=== PATIENT | female | born 1995 | race Caucasian/White ===

== ENCOUNTER → 2017-01-06 | Outpatient (CLI) | payer OTHER ==
[~2017-01-06] MED LIST: ACET-749 PO; AZITTAB PO; FLUT0.15 NAE; MEDR150I INJ; PRED20TA PO; PRENTAB26 PO
== END | disposition home or self-care (01) ==
LOC: C.LABSPEC 11:20
PROVIDERS: ATTEND Nurse Practitioner Adult Health
DX: J02.9 Acute pharyngitis, unspecified (principal)

== ENCOUNTER 2017-01-08 21:08 | Emergency (ER) | payer OTHER ==
[~2017-01-08] VITALS: Ht 162.6 cm; Wt 55.7 kg
[~2017-01-08 21:08] MED LIST changes: -ACET-749 PO; -AZITTAB PO; -FLUT0.15 NAE; -MEDR150I INJ; -PRED20TA PO
[2017-01-08 21:10] VITALS: TEMP 36.9; Ht 162.6 cm; Wt 55.7 kg
[2017-01-08] MEDS ORDERED: FLUT0.15 NAE (21:37)
[2017-01-08] MEDS ORDERED: MEDR150I INJ (21:37)
[2017-01-08 21:54] LABS: HEMATOCRIT 40.7 % (37-47); MEAN CELL VOLUME 86.4 fL (80-100); MEAN CORPUSCULAR HEMOGLOBIN 29.5 pg (25-34); MEAN CORPUSCULAR HGB CONC 34.2 g/dl (32-36); MEAN PLATELET VOLUME 9.8 fL (7.4-10.4); PLATELET COUNT 324 K/uL (130-400); RED BLOOD COUNT 4.71 M/uL (4.2-5.4); WHITE BLOOD COUNT 12.83 K/uL (4.8-10.8)
[2017-01-08 22:07] LABS: BUN/CREATININE RATIO 16.3 (10-20); CALCIUM 9.5 mg/dl (8.5-10.1); CREATININE 0.7 mg/dl (0.60-1.20); POTASSIUM 3.5 mmol/L (3.5-5.1)
[2017-01-08 22:18] LABS: BASO % 0.9 %; BASO ABS # 0.11 K/uL (0-0.2); COMPLETE YES; EOS % 1.4 %; IG% 0.3 %; LYMPH % 36.7 %; LYMPH ABS # 4.71 K/uL (1.2-3.4); MONO % 5.4 %; NEUT % 55.3 %
[2017-01-08] MEDS ORDERED: METHYLPREDNISOLONE 125 MG VIAL IV STA (23:01)
[2017-01-08] MEDS ORDERED: AZITHROMYCIN 250 MG TAB PO STA (23:01)
[2017-01-08 23:06] VITALS: BP 140/81; PULSE 83; O2SAT 98
[2017-01-08] MEDS ORDERED: AZITTAB PO (23:13)
[2017-01-08] MEDS ORDERED: PRED20TA PO (23:13)
--- NOTE | 2017-01-08 23:13 | EMERGENCY ROOM VISIT NOTE ---
History Report prepared by Magui: Mateo Bartlett Under the Supervision of: Dr. Rosendo Ruiz D.O. First contact with patient: 21:27 Chief Complaint: THROAT PAIN/INJURY Stated Complaint: SWOLLEN, PAINFUL TONSILS, MAJOR HEADACHES History of Present Illness The patient is a 21 year old female who presents to the Emergency Room with complaints of worsening throat pain starting 5 days ago. She rates her pain as a 7/10 in severity. The patient states that she visited the doctor two days ago where she had a Strep test done. She reports that the test was negative and she was sent home with a diagnosis of post nasal drip. The patient states that her tonsils are swollen and her left side is worse than the right. She also states that she has been experiencing headaches recently. The patient admits that she currently smokes everyday. She states that she cannot take Penicillin due to an allergy. Source of History: patient Onset: five days ago Position: throat Symptom Intensity: 7/10 Timing: worsening Modifying Factors (Worsening): other (smoking) Associated Symptoms: + headache Review of Systems See HPI for pertinent positives & negatives. A total of 10 systems reviewed and were otherwise negative. Past Medical & Surgical Medical Problems: (1) Bronchitis (2) Normal labor and delivery Family History Cancer Diabetes mellitus Hypertension Kidney disease Kidney stones Seizures Social History Smoking Status: Current Every Day Smoker Smokeless Tobacco Use: Yes (1-10/week) Alcohol Use: occasionally (twice/week) Drug Use: none Marital Status: in relationship Housing Status: lives with family Occupation Status: student Current/Historical Medications Scheduled Fluticasone Propionate (Nasal) (Flonase Allergy Relief), 1 SPRAY HEMA DAILY Medroxyprogesterone Acetate (C (Depo-Provera Contraceptiv), 1 DOSE INJ Q3MO Allergies Coded Allergies: Penicillins (Verified Allergy, Mild, RASH, 01/08/17) Physical Exam Vital Signs Date Time Temp Pulse Resp B/P (MAP) Pulse Ox O2 Delivery O2 Flow Rate FiO2 01/08/17 21:30 97 18 135/92 98 Room Air 01/08/17 21:18 139/85 01/08/17 21:10 36.9 102 20 125/83 97 Room Air Physical Exam CONSTITUTIONAL/VITAL SIGNS: Reviewed / noted above. GENERAL: Non-toxic in appearance. INTEGUMENTARY: Warm, dry, and [place]. HEAD: Normocephalic. EYES: without scleral icterus or trauma. ENT/OROPHARYNX: clear and moist. Diffuse posterior pharyngeal erythema. LYMPHADENOPATHY/NECK: Is supple without lymphadenopathy or meningismus. RESPIRATORY: Lungs clear and equal. CARDIOVASCULAR: Regular rate and rhythm. GI/ABDOMEN: Soft and nontender. No organomegaly or pulsatile mass. No rebound or guarding. Normal bowel sounds. EXTREMITIES: Warm and well perfused. BACK: No CVA tenderness. NEUROLOGICAL: Intact without focal deficits. PSYCHIATRIC: normal affect. MUSCULOSKELETAL: Normally developed with good muscle tone. Medical Decision & Procedures Laboratory Results 01/08/17 21:40 Red Blood Count 4.71, Mean Corpuscular Volume 86.4, Mean Corpuscular Hemoglobin 29.5, Mean Corpuscular Hemoglobin Concent 34.2, Mean Platelet Volume 9.8, Neutrophils (%) (Auto) 55.3, Lymphocytes (%) (Auto) 36.7, Monocytes (%) (Auto) 5.4, Eosinophils (%) (Auto) 1.4, Basophils (%) (Auto) 0.9, Neutrophils # (Auto) 7.10, Lymphocytes # (Auto) 4.71, Monocytes # (Auto) 0.69, Eosinophils # (Auto) 0.18, Basophils # (Auto) 0.11 01/08/17 21:40 Test 01/08/17 21:40 White Blood Count 12.83 K/uL (4.8-10.8) Red Blood Count 4.71 M/uL (4.2-5.4) Hemoglobin 13.9 g/dL (12.0-16.0) Hematocrit 40.7 % (37-47) Mean Corpuscular Volume 86.4 fL (80-100) Mean Corpuscular Hemoglobin 29.5 pg (25-34) Mean Corpuscular Hemoglobin Concent 34.2 g/dl (32-36) Platelet Count 324 K/uL (130-400) Mean Platelet Volume 9.8 fL (7.4-10.4) Neutrophils (%) (Auto) 55.3 % Lymphocytes (%) (Auto) 36.7 % Monocytes (%) (Auto) 5.4 % Eosinophils (%) (Auto) 1.4 % Basophils (%) (Auto) 0.9 % Neutrophils # (Auto) 7.10 K/uL (1.4-6.5) Lymphocytes # (Auto) 4.71 K/uL (1.2-3.4) Monocytes # (Auto) 0.69 K/uL (0.11-0.59) Eosinophils # (Auto) 0.18 K/uL (0-0.5) Basophils # (Auto) 0.11 K/uL (0-0.2) RDW Standard Deviation 42.5 fL (36.4-46.3) RDW Coefficient of Variation 13.4 % (11.5-14.5) Immature Granulocyte % (Auto) 0.3 % Immature Granulocyte # (Auto) 0.04 K/uL (0.00-0.02) Anion Gap 10.0 mmol/L (3-11) Est Creatinine Clear Calc Drug Dose 109.8 ml/min Estimated GFR () 143.5 Estimated GFR (Non- 123.9 BUN/Creatinine Ratio 16.3 (10-20) Calcium Level 9.5 mg/dl (8.5-10.1) Monoscreen NEG (NEG) Laboratory results as stated above per my review. ED Course 2040: Previous medical records were reviewed. The patient was evaluated in room C07. A complete history and physical examination was performed. 2308: On reevaluation, the patient is resting comfortably. I discussed the results and findings with the patient. She verbalized agreement of the treatment plan. She was discharged home. Medical Decision The differential diagnosis includes but is not limited to: Strep pharyngitis, mononucleosis, viral syndrome. This is a 21-year-old female who presents to the ED with a chief complaint of a sore throat. The patient states that she has had the sore throat since Wednesday. She had a strep test a couple of days ago that was negative but a culture revealed group B strep. The patient presents today with worsening symptoms with posterior oropharyngeal hyperemia/erythema. Her CBC was unremarkable. PRP is normal. Noble was negative. The patient was started on Zithromax. She was given IV Solu-Medrol and discharged on prednisone. The patient is felt to be stable for discharge and outpatient follow-up. Impression Primary Impression: Acute pharyngitis Scribe Attestation The scribe's documentation has been prepared under my direction and personally reviewed by me in its entirety. I confirm that the note above accurately reflects all work, treatment, procedures, and medical decision making performed by me. Departure Information Dispostion Home / Self-Care Prescriptions Prednisone (Prednisone) 20 Mg Tab 2 TAB PO DAILY for 4 Days, #8 TAB Prov: Rosendo Ruiz D.O. 01/08/17 Azithromycin (ZITHROMAX Z-HANNA) 250 Mg Tab 0 PO UD, #1 PKT 2 TABS DAY 1, THEN 1 TAB DAILY FOR 4 DAYS Prov: Rosendo Ruiz D.O. 01/08/17 Referrals No Doctor, Assigned (PCP) Patient Instructions My [facility] Additional Instructions Zithromax and prednisone as prescribed. Follow-up with your doctor for further care and evaluation in 1-2 days. Return to the emergency department for worsening or new symptoms or any concerns. You have been examined and treated today on an emergency basis only. This is not a substitute for, or an effort to provide, complete comprehensive medical care. It is impossible to recognize and treat all injuries or illnesses in a single emergency department visit. It is therefore important that you follow up closely with your doctor. Call as soon as possible for an appointment.
== END 2017-01-08 23:19 | disposition home or self-care (01) ==
LOC: C.EDB 21:09 → C.EDC 23:19
DX: J02.9 Acute pharyngitis, unspecified (principal); F17.210 Nicotine dependence, cigarettes, uncomplicated; Z79.3 Long term (current) use of hormonal contraceptives

== ENCOUNTER 2017-03-15 21:47 | Emergency (ER) | payer OTHER ==
[~2017-03-15] VITALS: Ht 162.6 cm; Wt 58.3 kg
[~2017-03-15 21:47] MED LIST changes: +FLUT0.15 NAE; +MEDR150I INJ; -PRENTAB26 PO
[2017-03-15 21:48] VITALS: TEMP 36.7; Ht 162.6 cm; Wt 58.3 kg
[2017-03-15 22:22] LABS: BASO % 1.2 %; COMPLETE YES; EOS % 0.8 %; HEMATOCRIT 42.7 % (37-47); IG% 0.4 %; LYMPH % 47.9 %; LYMPH ABS # 3.97 K/uL (1.2-3.4); MEAN CELL VOLUME 85.9 fL (80-100); MEAN CORPUSCULAR HEMOGLOBIN 28.2 pg (25-34); MEAN CORPUSCULAR HGB CONC 32.8 g/dl (32-36); MEAN PLATELET VOLUME 9.7 fL (7.4-10.4); MONO % 6.8 %; NEUT % 42.9 %; PLATELET COUNT 345 K/uL (130-400); RED BLOOD COUNT 4.97 M/uL (4.2-5.4); WHITE BLOOD COUNT 8.29 K/uL (4.8-10.8)
[2017-03-15 22:38] LABS: BUN/CREATININE RATIO 14.4 (10-20); CREATININE 0.77 mg/dl (0.60-1.20); POTASSIUM 3.5 mmol/L (3.5-5.1)
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
[2017-03-15] MEDS ORDERED: KETOROLAC TROMETHAMINE 30 MG/ML VIAL IV STA (23:22)
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
[2017-03-16] MEDS ORDERED: TYLENOL #3 HOME PACK PO ONE (00:15)
[2017-03-16] MEDS ORDERED: ACET-749 PO (00:34)
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
[2017-03-16 01:10] VITALS: BP 138/75; PULSE 116; O2SAT 99
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
== END 2017-03-16 00:55 | disposition home or self-care (01) ==
LOC: EDBD 21:47 → C.EDC 21:48
DX: S52.602A Unspecified fracture of lower end of left ulna, initial encounter for closed fracture (principal); V48.0XXA Car driver injured in noncollision transport accident in nontraffic accident, initial encounter; F17.200 Nicotine dependence, unspecified, uncomplicated; Z80.9 Family history of malignant neoplasm, unspecified; Z83.3 Family history of diabetes mellitus; Z82.49 Family history of ischemic heart disease and other diseases of the circulatory system; Z84.1 Family history of disorders of kidney and ureter; Z82.0 Family history of epilepsy and other diseases of the nervous system

== ENCOUNTER 2017-03-16 21:11 | Emergency (ER) | payer OTHER ==
[~2017-03-16] VITALS: Ht 162.6 cm; Wt 57.2 kg
[~2017-03-16 21:11] MED LIST changes: +ACET-749 PO; -FLUT0.15 NAE
[2017-03-16 21:17] VITALS: TEMP 36.7; Ht 162.6 cm; Wt 57.2 kg
[2017-03-16] MEDS ORDERED: OPTIRAY 320 IV PRN (22:00)
[2017-03-16 22:08] LABS: ISTAT CREATININE 0.7 mg/dl (0.6-1.3); ISTAT HEMOGLOBIN 12.6 g/dl (12.0-16.0); ISTAT IONIZED CALCIUM 1.08 mmol/l (1.12-1.32)
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
[2017-03-17] MEDS ORDERED: GADOXETATE DISODIUM (NON-WT BASED PROCEDURE) IV PRN (00:45)
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
[2017-03-17 01:36] LABS: BASO % 0.7 %; BASO ABS # 0.07 K/uL (0-0.2); COMPLETE YES; EOS % 0.7 %; HEMATOCRIT 38.4 % (37-47); IG% 0.3 %; LYMPH % 24.8 %; LYMPH ABS # 2.34 K/uL (1.2-3.4); MEAN CELL VOLUME 88.1 fL (80-100); MEAN CORPUSCULAR HEMOGLOBIN 28.4 pg (25-34); MEAN CORPUSCULAR HGB CONC 32.3 g/dl (32-36); MEAN PLATELET VOLUME 9.9 fL (7.4-10.4); MONO % 5.9 %; NEUT % 67.6 %; PLATELET COUNT 228 K/uL (130-400); RED BLOOD COUNT 4.36 M/uL (4.2-5.4); WHITE BLOOD COUNT 9.42 K/uL (4.8-10.8)
[2017-03-17 01:55] LABS: PARTIAL THROMBOPLASTIN RATIO 0.9; PROTHROMBIN TIME (PATIENT) 10.8 SECONDS (9.0-12.0)
[2017-03-17 02:14] LABS: ALB/GLOB RATIO 1.1 (0.9-2); ALKALINE PHOSPHATASE 53 U/L (45-117); ALT/SGPT 29 U/L (12-78); BLOOD UREA NITROGEN 14 mg/dl (7-18); BUN/CREATININE RATIO 18.3 (10-20); CALCIUM 8.7 mg/dl (8.5-10.1); CARBON DIOXIDE 23 mmol/L (21-32); CHLORIDE 111 mmol/L (98-107); CREATININE 0.75 mg/dl (0.60-1.20); GLUCOSE 85 mg/dl (70-99); SODIUM 140 mmol/L (136-145)
[2017-03-17 02:40] LABS: POTASSIUM 3.9 mmol/L (3.5-5.1)
[2017-03-17] MEDS ORDERED: MoRPHine SULFATE 2 MG/ML CARP IV STA (02:55)
[2017-03-17] MEDS ORDERED: ONDANSETRON INJ 2 MG/ML 2 ML VIAL IV STA (02:55)
[2017-03-17 03:30] VITALS: BP 119/80; PULSE 81; O2SAT 99
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
== END 2017-03-17 03:43 | disposition short-term general hospital (02) ==
LOC: C.EDB 21:12 → C.EDA 03-17 03:43
DX: S52.514A Nondisplaced fracture of right radial styloid process, initial encounter for closed fracture (principal); S36.029A Unspecified contusion of spleen, initial encounter; S52.202A Unspecified fracture of shaft of left ulna, initial encounter for closed fracture; V89.9XXA Person injured in unspecified vehicle accident, initial encounter; R07.81 Pleurodynia; F17.210 Nicotine dependence, cigarettes, uncomplicated; Z80.9 Family history of malignant neoplasm, unspecified; Z83.3 Family history of diabetes mellitus; Z82.49 Family history of ischemic heart disease and other diseases of the circulatory system; Z84.1 Family history of disorders of kidney and ureter; Z82.0 Family history of epilepsy and other diseases of the nervous system; Z79.3 Long term (current) use of hormonal contraceptives

== ENCOUNTER → 2017-11-05 | Outpatient (CLI) | payer OTHER ==
[~2017-11-05] MED LIST changes: -ACET-749 PO
== END | disposition home or self-care (01) ==
LOC: C.PAPS 16:45
PROVIDERS: ATTEND Obstetrics & Gynecology
DX: Z12.4 Encounter for screening for malignant neoplasm of cervix (principal); R87.612 Low grade squamous intraepithelial lesion on cytologic smear of cervix (LGSIL)

== ENCOUNTER → 2017-11-05 | Outpatient (CLI) | payer OTHER | END | disposition home or self-care (01) | LOC: C.LABSPEC 16:01 | PROVIDERS: ATTEND Obstetrics & Gynecology | DX: Z11.3 Encounter for screening for infections with a predominantly sexual mode of transmission (principal) ==